=== PATIENT | female | born 2000 | race Caucasian/White ===

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

== ENCOUNTER 2020-09-09 19:35 | Emergency (ER) | payer MEDICAID ==
[~2020-09-09 19:35] MED LIST changes: +MECLIZINE25 MG PO
[2020-09-09 20:47] LABS: HEMATOCRIT 36.6 % (37.0-47.0); HEMOGLOBIN 12.1 g/dl (12.0-16.0); IMMATURE GRANULOCYTES 0.6 % (0.0-5.0); MEAN CELL VOLUME 88.8 fL CALC (80.0-100.0); MEAN CORPUSCULAR HGB 29.4 pG CALC (26.0-32.0); MEAN CORPUSCULAR HGB CONC 33.1 g/dL CAL (32.0-36.0); NEUT# 12.44 thou/uL (2.00-7.15); RED BLOOD COUNT 4.12 mill/uL (4.20-5.60); RED CELL DISTRI WIDTH 12.3 % (11.5-15.5)
[2020-09-09 20:48] LABS: URINE BILIRUBIN - DIPSTICK NEGATIVE (NEGATIVE); URINE BLOOD DIPSTICK NEGATIVE (NEGATIVE); URINE COLOR YELLOW; URINE GLUCOSE - DIPSTICK NEGATIVE (NEGATIVE); URINE KETONE NEGATIVE (NEGATIVE); URINE LEUK ESTERASE NEGATIVE (NEGATIVE); URINE PROTEIN - DIPSTICK NEGATIVE (NEG-TRACE); URINE SPECIFIC GRAVITY 1.025; URINE UROBILINOGEN - DIPSTICK 0.2 E.U./dL (0.2)
[2020-09-09 20:52] LABS: URINE NITRITE - DIPSTICK NEGATIVE (Negative)
[2020-09-09 21:01] LABS: ALBUMIN 4.5 g/dL (3.2-5.0); ALKALINE PHOSPHATASE 78 u/l (38-126); ANION GAP 14 (6-22 (CALC)); BILIRUBIN, TOTAL 0.4 mg/dL (0.0-1.4); BUN 10 mg/dL (7-17); BUN/CREATININE RATIO 17 (12-20 (CALC)); CARBON DIOXIDE 25 mmol/l (22-30); CHLORIDE 101 mmol/l (95-108); CREATININE 0.6 mg/dL (0.5-1.0); GFR > 60 ML/MIN (>=60 (CALC)); GFR FOR AFR.AMER. > 60 ML/MIN (>=60 (CALC)); SGOT/AST 20 u/l (14-36); SODIUM 135 mmol/l (137-146); TOTAL PROTEIN 8.1 g/dL (6.3-8.2)
[2020-09-09 21:43] LABS: BETA-HCG, QUANT(RESULT NUMBER) 58554 mIU/mL
[2020-09-10 00:07] VITALS: BP 128/69
== END 2020-09-10 00:18 | disposition home or self-care (01) ==
LOC: ED 19:35
PROVIDERS: Emergency Medicine
DX: O26.891 Other specified pregnancy related conditions, first trimester (principal); R10.33 Periumbilical pain; O99.111 Other diseases of the blood and blood-forming organs and certain disorders involving the immune mechanism complicating pregnancy, first trimester; D72.829 Elevated white blood cell count, unspecified; Z3A.01 Less than 8 weeks gestation of pregnancy; Z20.822 Contact with and (suspected) exposure to COVID-19

== ENCOUNTER 2020-12-04 08:22 | Emergency (ER) | payer MEDICAID ==
[~2020-12-04] VITALS: Ht 172.7 cm; Wt 113.0 kg
[2020-12-04 09:06] LABS: HEMATOCRIT 35.4 % (37.0-47.0); IMMATURE GRANULOCYTES 0.1 % (0.0-5.0); MEAN CELL VOLUME 88.5 fL CALC (80.0-100.0); MEAN CORPUSCULAR HGB CONC 33.9 g/dL CAL (32.0-36.0); NEUT# 8.22 thou/uL (2.00-7.15); RED CELL DISTRI WIDTH 12.4 % (11.5-15.5)
[2020-12-04 09:14] LABS: URINE BILIRUBIN - DIPSTICK NEGATIVE (NEGATIVE); URINE BLOOD DIPSTICK NEGATIVE (NEGATIVE); URINE COLOR YELLOW; URINE GLUCOSE - DIPSTICK NEGATIVE (NEGATIVE); URINE KETONE NEGATIVE (NEGATIVE); URINE LEUK ESTERASE TRACE (NEGATIVE); URINE PROTEIN - DIPSTICK NEGATIVE (NEG-TRACE); URINE UROBILINOGEN - DIPSTICK 0.2 E.U./dL (0.2)
[2020-12-04 09:18] LABS: URINE NITRITE - DIPSTICK NEGATIVE (Negative)
[2020-12-04 09:47] LABS: ALKALINE PHOSPHATASE 62 u/l (38-126); AMYLASE 71 u/l (30-110); ANION GAP 13 (6-22 (CALC)); BILIRUBIN, TOTAL 0.3 mg/dL (0.0-1.4); BUN 5 mg/dL (7-17); BUN/CREATININE RATIO 12 (12-20 (CALC)); CARBON DIOXIDE 21 mmol/l (22-30); CHLORIDE 104 mmol/l (95-108); CREATININE 0.4 mg/dL (0.5-1.0); GFR > 60 ML/MIN (>=60 (CALC)); GFR FOR AFR.AMER. > 60 ML/MIN (>=60 (CALC)); LIPASE 59 u/l (23-300); SGOT/AST 20 u/l (14-36); SODIUM 134 mmol/l (137-146); TOTAL PROTEIN 7.9 g/dL (6.3-8.2)
[2020-12-04 10:28] VITALS: BP 101/58
== END 2020-12-04 10:48 | disposition home or self-care (01) ==
LOC: ED 08:22
DX: O21.0 Mild hyperemesis gravidarum (principal); Z3A.18 18 weeks gestation of pregnancy

== ENCOUNTER 2021-01-17 22:59 | Emergency (ER) | payer MEDICAID ==
[~2021-01-17] VITALS: Ht 172.7 cm; Wt 100.0 kg
[2021-01-18 00:34] VITALS: BP 105/76
== END 2021-01-18 00:34 | disposition home or self-care (01) ==
LOC: ED 22:59
DX: O98.513 Other viral diseases complicating pregnancy, third trimester (principal); U07.1 COVID-19; Z3A.00 Weeks of gestation of pregnancy not specified

== ENCOUNTER 2021-05-04 01:34 | Emergency (ER) | payer MEDICAID ==
[~2021-05-04] VITALS: Ht 172.7 cm; Wt 110.0 kg
[2021-05-04 02:48] LABS: HEMATOCRIT 30.1 % (37.0-47.0); IMMATURE GRANULOCYTES 0.2 % (0.0-5.0); MEAN CELL VOLUME 90.4 fL CALC (80.0-100.0); MEAN CORPUSCULAR HGB 29.4 pG CALC (26.0-32.0); MEAN CORPUSCULAR HGB CONC 32.6 g/dL CAL (32.0-36.0); NEUT# 7.24 thou/uL (2.00-7.15); RED BLOOD COUNT 3.33 mill/uL (4.20-5.60); RED CELL DISTRI WIDTH 13.3 % (11.5-15.5)
[2021-05-04 02:49] LABS: HEMOGLOBIN 9.8 g/dl (12.0-16.0)
[2021-05-04 02:56] LABS: ALBUMIN 3.1 g/dL (3.2-5.0); ALKALINE PHOSPHATASE 85 u/l (38-126); ANION GAP 12 (6-22 (CALC)); BILIRUBIN, TOTAL 1.1 mg/dL (0.0-1.4); BUN 17 mg/dL (7-17); BUN/CREATININE RATIO 29 (12-20 (CALC)); CARBON DIOXIDE 22 mmol/l (22-30); CHLORIDE 107 mmol/l (95-108); CREATININE 0.6 mg/dL (0.5-1.0); GFR > 60 ML/MIN (>=60 (CALC)); GFR FOR AFR.AMER. > 60 ML/MIN (>=60 (CALC)); POTASSIUM 4.9 mmol/l (3.5-5.1); SGOT/AST 66 u/l (14-36); SODIUM 136 mmol/l (137-146); TOTAL PROTEIN 6.5 g/dL (6.3-8.2)
[2021-05-04] MEDS ORDERED: IMITREX100 M1 PO (03:13)
[2021-05-04 04:06] VITALS: BP 131/85
== END 2021-05-04 04:20 | disposition home or self-care (01) ==
LOC: ED 01:34
PROVIDERS: Family Medicine
DX: G43.909 Migraine, unspecified, not intractable, without status migrainosus (principal)

== ENCOUNTER 2021-08-24 18:23 | Emergency (ER) | payer MEDICAID ==
[~2021-08-24] VITALS: Ht 172.7 cm; Wt 118.0 kg
[~2021-08-24 18:23] MED LIST changes: +IMITREX100 M1 PO
[2021-08-24 18:46] VITALS: BP 138/64
== END 2021-08-24 21:30 | disposition left against medical advice (07) ==
LOC: ED 18:23 → LWOBS 21:30
DX: Z91.19 Patient's noncompliance with other medical treatment and regimen (principal)

== ENCOUNTER 2021-10-13 07:35 | Day surgery (SDC) | payer MEDICAID ==
[~2021-10-13] VITALS: Ht 172.7 cm; Wt 111.1 kg
[~2021-10-13 07:35] MED LIST changes: +OMEPRAZOLE DR40 MG PO
[2021-10-13] MEDS ORDERED: TRAMADOL HYDROC50 M1 PO (10:03)
[2021-10-13 11:35] VITALS: BP 123/63
== END 2021-10-13 11:50 | disposition home or self-care (01) ==
LOC: ORM 07:35
PROVIDERS: ATTEND Surgery
DX: K80.10 Calculus of gallbladder with chronic cholecystitis without obstruction (principal); K21.9 Gastro-esophageal reflux disease without esophagitis
CPT/HCPCS: J0131; J1100

== ENCOUNTER 2021-12-26 20:41 | Emergency (ER) | payer MEDICAID ==
[~2021-12-26] VITALS: Ht 172.7 cm; Wt 113.0 kg
[~2021-12-26 20:41] MED LIST changes: +TRAMADOL HYDROC50 M1 PO
[2021-12-26 21:00] VITALS: BP 152/95
[2021-12-26] MEDS ORDERED: CORTISPORIN OTI10 ML AD (21:10)
[2021-12-26] MEDS ORDERED: VOLTAREN75 MG PO (21:11)
[2021-12-26 21:17] VITALS: BP 153/95
== END 2021-12-26 21:23 | disposition home or self-care (01) ==
LOC: ED 20:41
DX: H60.91 Unspecified otitis externa, right ear (principal)

== ENCOUNTER 2022-08-24 07:11 | Day surgery (SDC) | payer OTHER, MEDICAID ==
[~2022-08-24] VITALS: Ht 172.7 cm; Wt 110.2 kg
[~2022-08-24 07:11] MED LIST changes: +CORTISPORIN OTI10 ML AD; +TYLENOL500 MG PO; +VOLTAREN75 MG PO
[2022-08-24] MEDS ORDERED: PREVACID30 M1 PO (08:25)
[2022-08-24 09:18] VITALS: BP 112/64
== END 2022-08-24 09:30 | disposition home or self-care (01) | DRG 392 ==
LOC: ENDO 07:11 → ORM 10:15 → ENDO 10:15 → ORM 08-26 08:00
PROVIDERS: ATTEND Surgery
PROC: 0DB98ZX Excision of Duodenum, Via Natural or Artificial Opening Endoscopic, Diagnostic (ICD-10-PCS; principal; 2022-08-24)
PROC: 0DB78ZX Excision of Stomach, Pylorus, Via Natural or Artificial Opening Endoscopic, Diagnostic (ICD-10-PCS; 2022-08-24)
DX: K29.50 Unspecified chronic gastritis without bleeding (principal); K25.9 Gastric ulcer, unspecified as acute or chronic, without hemorrhage or perforation; K31.7 Polyp of stomach and duodenum; Z90.49 Acquired absence of other specified parts of digestive tract

== ENCOUNTER 2022-12-11 20:08 | Emergency (ER) | payer OTHER ==
[~2022-12-11] VITALS: Ht 172.7 cm; Wt 104.3 kg
[~2022-12-11 20:08] MED LIST changes: +NEXIUM40 M1 PO; +PREVACID30 M1 PO
[2022-12-11 21:17] LABS: BASO% 0.3 % (0-3); EOS% 1.2 % (0-8); HEMATOCRIT 32.2 % (37.0-47.0); HEMOGLOBIN 10.5 g/dl (12.0-16.0); IMMATURE GRANULOCYTES 0.1 % (0.0-5.0); LYMPH% 27.6 % (15-41); MEAN CELL VOLUME 88.5 fL CALC (80.0-100.0); MEAN CORPUSCULAR HGB 28.8 pG CALC (26.0-32.0); MEAN CORPUSCULAR HGB CONC 32.6 g/dL CAL (32.0-36.0); MONO% 5.5 % (2-13); NEUT# 7.32 thou/uL (2.00-7.15); NEUT% 65.3 % (42-76); RED BLOOD COUNT 3.64 mill/uL (4.20-5.60); RED CELL DISTRI WIDTH 12.7 % (11.5-15.5)
[2022-12-11 21:30] LABS: ALBUMIN 3.8 g/dL (3.2-5.0); ALKALINE PHOSPHATASE 62 u/l (38-126); ANION GAP 12 (6-22 (CALC)); BUN 14 mg/dL (7-17); BUN/CREATININE RATIO 21 (12-20 (CALC)); CARBON DIOXIDE 22 mmol/l (22-30); CHLORIDE 108 mmol/l (95-108); CREATININE 0.7 mg/dL (0.5-1.0); GFR FOR AFR.AMER. > 60 ML/MIN (>=60 (CALC)); GFR OTHER RACES > 60 ML/MIN (>=60 (CALC)); POTASSIUM 4.2 mmol/l (3.5-5.1); SGOT/AST 19 u/l (14-36); SODIUM 137 mmol/l (137-146); TOTAL PROTEIN 6.8 g/dL (6.3-8.2)
[2022-12-11 21:35] LABS: BILIRUBIN, TOTAL 0.3 mg/dL (0.02-1.3)
[2022-12-11] MEDS ORDERED: IMITREX100 M1 PO (22:29)
[2022-12-11 23:00] VITALS: BP 112/68
== END 2022-12-11 23:08 | disposition home or self-care (01) | DRG 103 ==
LOC: ED 20:08
PROVIDERS: Family Medicine
DX: G43.909 Migraine, unspecified, not intractable, without status migrainosus (principal)

== ENCOUNTER 2022-12-12 17:53 | Emergency (ER) | payer OTHER ==
[~2022-12-12] VITALS: Ht 172.7 cm; Wt 95.2 kg
[2022-12-12 19:15] VITALS: BP 134/80
[2022-12-12 19:31] VITALS: BP 113/60
[2022-12-12 19:46] VITALS: BP 121/63
[2022-12-12 19:51] LABS: BASO% 0.1 % (0-3); EOS% 0.1 % (0-8); HEMATOCRIT 32.5 % (37.0-47.0); HEMOGLOBIN 10.5 g/dl (12.0-16.0); IMMATURE GRANULOCYTES 0.2 % (0.0-5.0); LYMPH% 14.4 % (15-41); MEAN CELL VOLUME 86.9 fL CALC (80.0-100.0); MEAN CORPUSCULAR HGB 28.1 pG CALC (26.0-32.0); MEAN CORPUSCULAR HGB CONC 32.3 g/dL CAL (32.0-36.0); MONO% 6.9 % (2-13); NEUT# 16.93 thou/uL (2.00-7.15); NEUT% 78.3 % (42-76); RED BLOOD COUNT 3.74 mill/uL (4.20-5.60); RED CELL DISTRI WIDTH 12.5 % (11.5-15.5)
[2022-12-12 20:04] LABS: ALBUMIN 4.1 g/dL (3.2-5.0); ALKALINE PHOSPHATASE 80 u/l (38-126); ANION GAP 14 (6-22 (CALC)); BILIRUBIN, TOTAL 0.4 mg/dL (0.02-1.3); BUN 12 mg/dL (7-17); BUN/CREATININE RATIO 20 (12-20 (CALC)); CARBON DIOXIDE 22 mmol/l (22-30); CHLORIDE 108 mmol/l (95-108); CREATININE 0.6 mg/dL (0.5-1.0); GFR FOR AFR.AMER. > 60 ML/MIN (>=60 (CALC)); GFR OTHER RACES > 60 ML/MIN (>=60 (CALC)); POTASSIUM 3.9 mmol/l (3.5-5.1); SGOT/AST 25 u/l (14-36); SODIUM 140 mmol/l (137-146); TOTAL PROTEIN 7.4 g/dL (6.3-8.2)
[2022-12-12 20:16] VITALS: BP 117/66
[2022-12-12 20:31] VITALS: BP 105/50
[2022-12-12 22:04] VITALS: BP 105/50
== END 2022-12-12 21:34 | disposition left against medical advice (07) | DRG 103 ==
LOC: ED 17:53
PROVIDERS: Family Medicine
DX: G43.909 Migraine, unspecified, not intractable, without status migrainosus (principal); D72.829 Elevated white blood cell count, unspecified; Z53.29 Procedure and treatment not carried out because of patient's decision for other reasons; Z20.822 Contact with and (suspected) exposure to COVID-19
CPT/HCPCS: Q9967

== ENCOUNTER 2023-06-18 16:22 | Emergency (ER) | payer SELFPAY ==
[~2023-06-18] VITALS: Ht 172.7 cm; Wt 118.0 kg
[~2023-06-18 16:22] MED LIST changes: +METHOCARBAMOL500 MG PO; +PREDNISONE10 MG PO
[2023-06-18 17:16] VITALS: BP 129/83
[2023-06-18] MEDS ORDERED: AMOX/K CLAV875 M1 PO (17:16)
[2023-06-18] MEDS ORDERED: NEOMYCIN/POLYMY1 SUS OT (17:16)
[2023-06-18 17:20] VITALS: BP 129/83
== END 2023-06-18 17:29 | disposition home or self-care (01) | DRG 153 ==
LOC: ED 16:22
DX: H66.92 Otitis media, unspecified, left ear (principal); H60.92 Unspecified otitis externa, left ear

== ENCOUNTER 2024-08-07 18:40 | Emergency (ER) | payer SELFPAY ==
[~2024-08-07] VITALS: Ht 172.7 cm; Wt 120.0 kg
[~2024-08-07 18:40] MED LIST changes: +AMOX/K CLAV875 M1 PO; +CEFIXIME400 MG PO; +CLEOCIN300 MG PO; +NEOMYCIN/POLYMY1 SUS OT
[2024-08-07 19:09] VITALS: BP 135/76
[2024-08-07] MEDS ORDERED: DOXYCYCLINE HYCLATE 100 MG/CAP PO ONE (19:35)
[2024-08-07] MEDS ORDERED: AZELASTINE HCL0.1 % (19:52)
[2024-08-07] MEDS ORDERED: LEVOCETIRIZINE D5 MG PO (19:52)
[2024-08-07] MEDS ORDERED: VIBRAMYCIN100 M2 PO (19:52)
[2024-08-07 20:01] VITALS: BP 124/65
[2024-08-07 20:07] VITALS: BP 135/76
== END 2024-08-07 20:07 | disposition home or self-care (01) | DRG 153 ==
LOC: ED 18:40
DX: J32.4 Chronic pansinusitis (principal); Z20.822 Contact with and (suspected) exposure to COVID-19